=== PATIENT | male | born 1990 | race Caucasian/White ===

== ENCOUNTER 2017-03-02 03:17 | Observation (INO) | payer BC ==
[2017-03-02] MEDS ORDERED: 50% Dextrose in Water 50 ML Syringe ONE ×2 (03:27→04:34)
[2017-03-02] MEDS ORDERED: Sodium Chloride 0.9% 1,000 ML IV ONE (03:32)
[2017-03-02] MEDS ORDERED: 50% Dextrose in Water 50 ML Syringe IVPUSH ONE ×3 (03:33→05:58)
[2017-03-02] MEDS ORDERED: Ondansetron 4 MG/2 ML SDV IVPUSH PRN (03:53)
[2017-03-02] MEDS ORDERED: Temazepam 15 MG Cap PO PRN (03:53)
[2017-03-02] MEDS ORDERED: Acetaminophen 325 MG Tab PO PRN (03:53)
--- NOTE | 2017-03-02 03:53 | EDM.PDOC ---
ED HPI GENERAL MEDICAL PROBLEM - General Chief Complaint: Diabetic Complaint Stated Complaint: DIABETIC- BLOOD SUGAR LEVELS DROPPING Time Seen by Provider: 03/02/17 03:35 Source of Information: Reports: Patient, RN - History of Present Illness INITIAL COMMENTS - FREE TEXT/NARRATIVE: He presented in company friend . He reportedly was confused and his blood sugar on arrival was 44g/dl. He states that he took 8 units of short acting insulin at about midnight as he was eating. - Related Data Allergies Allergy/AdvReac Type Severity Reaction Status Date / Time No Known Allergies Allergy Verified 03/02/17 03:30 Home Meds: Home Meds Insulin Glarg,Human.Rec.Analog [LantUS] 6 unit SUBCUT DAILY 03/02/17 [History] Past Medical History HEENT History: Reports: None Cardiovascular History: Reports: None Respiratory History: Reports: None Gastrointestinal History: Reports: None Genitourinary History: Reports: None Musculoskeletal History: Reports: None Neurological History: Reports: None Psychiatric History: Reports: None Endocrine/Metabolic History: Reports: Diabetes, Type I (diagnosed about four months ago.) Hematologic History: Reports: None Immunologic History: Reports: None Oncologic (Cancer) History: Reports: None Dermatologic History: Reports: None - Past Surgical History Head Surgeries/Procedures: Reports: None HEENT Surgical History: Reports: None Cardiovascular Surgical History: Reports: None GI Surgical History: Reports: None Male Surgical History: Reports: None Neurological Surgical History: Reports: None Social & Family History - Family History Family Medical History: Noncontributory - Tobacco Use Smoking Status *Q: Never Smoker - Caffeine Use Caffeine Use: Reports: Coffee - Recreational Drug Use Recreational Drug Use: No ED ROS GENERAL - Review of Systems Review Of Systems: See Below Constitutional: Denies: Fever, Chills Respiratory: Denies: Shortness of Breath, Cough, Sputum, Hemoptysis Cardiovascular: Denies: Chest Pain ED EXAM GENERAL NO PERIP PULSE - Physical Exam Exam: See Below General Appearance: Alert, No Apparent Distress Throat/Mouth: Normal Lips Head: Atraumatic Neck: Supple Respiratory/Chest: No Respiratory Distress, No Accessory Muscle Use Course - Vital Signs Last Recorded V/S: Last Vital Signs Temp 97.0 F 03/02/17 03:23 Pulse 80 03/02/17 03:23 Resp 18 03/02/17 03:23 BP 129/74 03/02/17 03:23 Pulse Ox 98 03/02/17 03:23 - Orders/Labs/Meds Orders: Active Orders 24 hr Category Date Time Status Patient Status [ADT] Routine ADT 03/02/17 03:53 Active Blood Glucose Check, Bedside [RC] Q1H Care 03/02/17 03:58 Active Oxygen Therapy [RC] PRN Care 03/02/17 03:53 Active Oxygen Therapy [RC] PRN Care 03/02/17 03:58 Active VTE/DVT Education [RC] PER UNIT ROUTINE Care 03/02/17 03:53 Active VTE/DVT Education [RC] PER UNIT ROUTINE Care 03/02/17 03:58 Active Vital Signs [RC] Q4H Care 03/02/17 03:53 Active Vital Signs [RC] Q4H Care 03/02/17 03:58 Active [employer] Diet [DIET] Diet 03/02/17 Breakfast Active COMPREHENSIVE METABOLIC PN,CMP [CHEM] Stat Lab 03/02/17 03:25 Received LIPID PANEL [CHEM] Stat Lab 03/02/17 03:25 Received MAGNESIUM [CHEM] Stat Lab 03/02/17 03:57 Ordered Acetaminophen [Tylenol] Med 03/02/17 03:53 Active 650 mg PO Q4H PRN Dextrose 5%-0.9% NaCl [Dextrose 5%-Normal Saline] 1,000 Med 03/02/17 04:00 Active ml IV ASDIRECTED Insulin Aspart [NovoLOG] Med 03/02/17 04:00 Active See Protocol SUBCUT Q1H Ondansetron [Zofran] Med 03/02/17 03:53 Active 4 mg IVPUSH Q4H PRN Sodium Chloride 0.9% [Normal Saline] 1,000 ml Med 03/02/17 03:32 Active IV .Bolus Temazepam [Restoril] Med 03/02/17 03:53 Active 15 mg PO BEDTIME PRN Resuscitation Status Routine Resus Stat 03/02/17 03:53 Ordered Medication Orders Acetaminophen (Tylenol) 650 mg PO Q4H PRN PRN Reason: Pain (Mild 1-3)/fever Sodium Chloride (Normal Saline) 1,000 mls @ 999 mls/hr IV .Bolus ONE Stop: 03/02/17 04:32 Last Admin: 03/02/17 03:37 Dose: 999 mls/hr Dextrose/Sodium Chloride (Dextrose 5%-Normal Saline) 1,000 mls @ 150 mls/hr IV ASDIRECTED ZEESHAN Last Admin: 03/02/17 04:00 Dose: 150 mls/hr Insulin Aspart (Novolog) 0 unit SUBCUT Q1H ZEESHAN PRN Reason: Protocol Ondansetron HCl (Zofran) 4 mg IVPUSH Q4H PRN PRN Reason: Nausea Temazepam (Restoril) 15 mg PO BEDTIME PRN PRN Reason: Sleep Labs: Laboratory Tests 03/02/17 03/02/17 03/02/17 Range/Units 03:25 03:37 03:54 WBC 7.12 (4.0-11.0) K/uL RBC 4.92 (4.50-5.90) M/uL Hgb 14.9 (13.0-17.0) g/dL Hct 43.3 (38.0-50.0) % MCV 88.0 (80.0-98.0) fL MCH 30.3 (27.0-32.0) pg MCHC 34.4 (31.0-37.0) g/dL RDW Std Deviation 39.4 (28.0-62.0) fl RDW Coeff of [place] 12 (11.0-15.0) % Plt Count 259 (150-400) K/uL MPV 8.70 (7.40-12.00) fL Neut % (Auto) 53.9 (48.0-80.0) % Lymph % (Auto) 39.0 (16.0-40.0) % [place] % (Auto) 5.1 (0.0-15.0) % Eos % (Auto) 1.4 (0.0-7.0) % Baso % (Auto) 0.6 (0.0-1.5) % Neut # (Auto) 3.8 (1.4-5.7) K/uL Lymph # (Auto) 2.8 H (0.6-2.4) K/uL [place] # (Auto) 0.4 (0.0-0.8) K/uL Eos # (Auto) 0.1 (0.0-0.7) K/uL Baso # (Auto) 0.0 (0.0-0.1) K/uL Nucleated RBC % 0.0 /100WBC Nucleated RBCs # 0 K/uL POC Glucose 205 H 60 (60-110) mg/dL Meds: Medications Generic Name Dose Route Start Last Admin Trade Name Freq PRN Reason Stop Dose Admin Acetaminophen 650 mg 03/02/17 03:53 Tylenol PO Q4H PRN Pain (Mild 1-3)/fever Sodium Chloride 1,000 mls @ 999 mls/hr 03/02/17 03:32 03/02/17 03:37 Normal Saline IV 03/02/17 04:32 999 mls/hr .Bolus ONE Administration Dextrose/Sodium Chloride 1,000 mls @ 150 mls/hr 03/02/17 04:00 03/02/17 04:00 Dextrose 5%-Normal Saline IV 150 mls/hr ASDIRECTED ZEESHAN Administration Insulin Aspart 0 unit 03/02/17 04:00 Novolog SUBCUT Q1H [facility] Protocol Ondansetron HCl 4 mg 03/02/17 03:53 Zofran IVPUSH Q4H PRN Nausea Temazepam 15 mg 03/02/17 03:53 Restoril PO BEDTIME PRN Sleep Discontinued Medications Generic Name Dose Route Start Last Admin Trade Name Freq PRN Reason Stop Dose Admin Dextrose/Water Confirm 03/02/17 03:27 03/02/17 04:00 Dextrose 50% In Water Administered 03/02/17 03:28 50 ml Dose Administration 50 ml .ROUTE .STK-MED ONE Dextrose/Water 50 ml 03/02/17 03:33 03/02/17 03:36 Dextrose 50% In Water IVPUSH 03/02/17 03:34 50 ml ONETIME ONE Administration - Re-Assessments/Exams Free Text/Narrative Re-Assessment/Exam: 03/02/17 03:49 He received D50 on arrival. He is feeling much better now with a POC glucose of about 200 g/dl. I recommended admission for observation. Departure - Departure Time of Disposition: 04:01 Disposition: Admitted As Inpatient 66 Condition: Fair Clinical Impression: Hypoglycemia - Discharge Information Referrals: PCP,None [Primary Care Provider] - Forms: ED Department Discharge - My Orders Last 24 Hours: My Active Orders 03/02/17 03:25 COMPREHENSIVE METABOLIC PN,CMP [CHEM] Stat LIPID PANEL [CHEM] Stat 03/02/17 03:32 Sodium Chloride 0.9% [Normal Saline] 1,000 ml IV .Bolus 03/02/17 03:53 Patient Status [ADT] Routine Oxygen Therapy [RC] PRN VTE/DVT Education [RC] PER UNIT ROUTINE Vital Signs [RC] Q4H Acetaminophen [Tylenol] 650 mg PO Q4H PRN Ondansetron [Zofran] 4 mg IVPUSH Q4H PRN Temazepam [Restoril] 15 mg PO BEDTIME PRN Resuscitation Status Routine 03/02/17 03:57 MAGNESIUM [CHEM] Stat 03/02/17 03:58 Blood Glucose Check, Bedside [RC] Q1H Oxygen Therapy [RC] PRN VTE/DVT Education [RC] PER UNIT ROUTINE Vital Signs [RC] Q4H 03/02/17 04:00 Dextrose 5%-0.9% NaCl [Dextrose 5%-Normal Saline] 1,000 ml IV ASDIRECTED Insulin Aspart [NovoLOG] See Protocol SUBCUT Q1H 03/02/17 Breakfast [employer] [employer] Diet [DIET] - Assessment/Plan Last 24 Hours: My Active Orders 03/02/17 03:25 COMPREHENSIVE METABOLIC PN,CMP [CHEM] Stat LIPID PANEL [CHEM] Stat 03/02/17 03:32 Sodium Chloride 0.9% [Normal Saline] 1,000 ml IV .Bolus 03/02/17 03:53 Patient Status [ADT] Routine Oxygen Therapy [RC] PRN VTE/DVT Education [RC] PER UNIT ROUTINE Vital Signs [RC] Q4H Acetaminophen [Tylenol] 650 mg PO Q4H PRN Ondansetron [Zofran] 4 mg IVPUSH Q4H PRN Temazepam [Restoril] 15 mg PO BEDTIME PRN Resuscitation Status Routine 03/02/17 03:57 MAGNESIUM [CHEM] Stat 03/02/17 03:58 Blood Glucose Check, Bedside [RC] Q1H Oxygen Therapy [RC] PRN VTE/DVT Education [RC] PER UNIT ROUTINE Vital Signs [RC] Q4H 03/02/17 04:00 Dextrose 5%-0.9% NaCl [Dextrose 5%-Normal Saline] 1,000 ml IV ASDIRECTED Insulin Aspart [NovoLOG] See Protocol SUBCUT Q1H 03/02/17 Breakfast [employer] [employer] Diet [DIET]
[2017-03-02] MEDS ORDERED: Dextrose 5%-0.9% NaCl 1,000 ML IV SCH ×2 (04:00→07:49)
[2017-03-02 04:09] LABS: CHLORIDE,CL 112 mmol/L (98-110); SODIUM,NA 147 mmol/L (136-146)
[2017-03-02] MEDS: Insulin Aspart 100 Units/ML 3 ML Pen SUBCUT SCH ×2 (08:37→09:55)
[2017-03-02] MEDS: Potassium Chloride 20 MEQ Tab.ER PO ONE ×2 (09:55→09:59)
[2017-03-02 16:36] VITALS: BP 112/61
--- NOTE | 2017-03-02 19:52 | PCM.HP ---
H&P History of Present Illness - General Date of Service: 03/02/17 Admit Problem/Dx: Admission Diagnosis/Problem Admission Diagnosis/Problem Hypoglycemia - History of Present Illness Initial Comments - Free Text/Narative: This is a 26-year-old male who is presenting secondary to hypoglycemic episode due to injection of 8 units of NovoLog. When I initially tried to speak with the patient he was refusing to talk, and turnaround and looked away. However after, reapproaching the patient and discussing with the patient it was determined that the patient had taken 8 units of insulin because he thought he might be high, he also had about 8 cans of beer. Patient was brought in and in the ER the patient was given dextrose fluids, his blood sugars were rechecked and had normalized, he was admitted for observation. It was determined that the patient had not done this intentionally. Onset of Symptoms: Reports: Today - Related Data Allergies/Adverse Reactions: Allergies Allergy/AdvReac Type Severity Reaction Status Date / Time No Known Allergies Allergy Verified 03/02/17 03:30 Home Medications: Home Meds Insulin Glarg,Human.Rec.Analog [Lantus] 6 unit SUBCUT DAILY 03/02/17 [History] Insulin Lispro [Humalog Kwikpen U-100] 03/02/17 [History] Past Medical History HEENT History: Reports: None Cardiovascular History: Reports: None Respiratory History: Reports: None Gastrointestinal History: Reports: None Genitourinary History: Reports: None Musculoskeletal History: Reports: None Neurological History: Reports: None Psychiatric History: Reports: None Endocrine/Metabolic History: Reports: Diabetes, Type I Hematologic History: Reports: None Immunologic History: Reports: None Oncologic (Cancer) History: Reports: None Dermatologic History: Reports: None - Past Surgical History Head Surgeries/Procedures: Reports: None HEENT Surgical History: Reports: None Cardiovascular Surgical History: Reports: None GI Surgical History: Reports: None Male Surgical History: Reports: None Neurological Surgical History: Reports: None Social & Family History - Family History Family Medical History: Noncontributory - Tobacco Use Smoking Status *Q: Never Smoker - Caffeine Use Caffeine Use: Reports: Energy Drinks - Alcohol Use Days Per Week of Alcohol Use: 2 Number of Drinks Per Day: 8 Total Drinks Per Week: 16 - Recreational Drug Use Recreational Drug Use: No H&P Review of Systems - Review of Systems: Review Of Systems: ROS reveals no pertinent complaints other than HPI. Exam - Exam Exam: See Below - Vital Signs Vital Signs: Last Vital Signs Temp 36.6 C 03/02/17 12:00 Pulse 63 03/02/17 06:41 Resp 18 03/02/17 16:00 BP 112/61 03/02/17 16:00 Pulse Ox 97 03/02/17 16:00 Weight: 23.6 kg - Exam General: Alert Neck: Supple Lungs: Clear to Auscultation, Normal Respiratory Effort Cardiovascular: Regular Rate, Regular Rhythm GI/Abdominal Exam: Normal Bowel Sounds, Soft Extremities: Normal Inspection, Normal Range of Motion - Patient Data Lab Results Last 24 hrs: Laboratory Results - last 24 hr 03/02/17 03/02/17 03/02/17 Range/Units 03:54 04:05 04:33 POC Glucose 60 172 H 35 L (60-110) mg/dL 03/02/17 03/02/17 03/02/17 Range/Units 04:45 05:16 05:53 POC Glucose 174 H 84 64 (60-110) mg/dL 03/02/17 03/02/17 03/02/17 Range/Units 06:39 07:42 08:33 POC Glucose 138 H 103 108 (60-110) mg/dL 03/02/17 03/02/17 03/02/17 Range/Units 09:41 11:04 12:15 POC Glucose 123 H 148 H 145 H (60-110) mg/dL 03/02/17 03/02/17 03/02/17 Range/Units 12:56 14:15 15:20 POC Glucose 182 H 149 H 104 (60-110) mg/dL 03/02/17 Range/Units 16:50 POC Glucose 115 H (60-110) mg/dL Result Diagrams: 03/02/17 03:25 03/02/17 03:25 *Q Meaningful Use (ADM) - VTE *Q VTE Criteria *Q: - Stroke *Q Stroke Criteria *Q: - AMI *Q AMI Criteria *Q: Problem List Initiated/Reviewed/Updated: Yes Orders Last 24hrs: Active Orders 24 hr Category Date Time Status Blood Glucose Check, Bedside [RC] Q1H Care 03/02/17 03:58 Active Oxygen Therapy [RC] PRN Care 03/02/17 03:58 Active Ready for Discharge [RC] PER UNIT ROUTINE Care 03/02/17 17:40 Active VTE/DVT Education [RC] PER UNIT ROUTINE Care 03/02/17 03:58 Active Vital Signs [RC] Q4H Care 03/02/17 03:58 Active Consult to Cutter Operator [Consult to Diabetic Nurse Cons 03/02/17 10:34 Active Specialist] [CONS] Routine Assessment/Plan Comment:: 46-year-old type I diabetic admitted secondary to hypoglycemic episode due to injection of insulin Admit the patient for observation -D5W with every hour blood sugar checks to ensure stable blood sugars -CBC and CMP in the morning -Provider the patient is stable, did not intentionally want to harm himself, we shall get diabetic education counseling for the patient and ensure appropriate follow-up -Patient to be discharged after diabetic education Discharge Summary Date of admission: 03/02/2017 Date of discharge: 03/02/2017 Admitting diagnosis: #1. Hypoglycemia secondary to unintentional extra injection of insulin a type I diabetic #2. #3. #4. #5. Discharge diagnoses: #1. Hypoglycemia now resolved #2. Type 1 diabetes #3. #4. #5. Consultations: Diabetic education Procedures: None Hospitalization course: Patient was admitted for observation overnight to ensure that the patient's blood sugars were stable, and that the patient did not require any additional D5W for his low blood sugars. Patient's vital signs were stable, patient's laboratory data was stable patient's CBC and BMP was within normal limits. Patient's blood sugars after being checked consistently were within the normal reference range. After speaking with the patient in the morning it was determined that the patient had done this unintentionally. Diabetic education saw the patient and told the patient that he should take 6 units of Lantus daily, as well as a aggressive insulin sliding scale. The patient is from [facility] and he was told to make a follow-up appointment with his primary care physician and [place] as he was leaving for [place] next week. I have scheduled the patient for an outpatient appointment on 03/07/2017 in case the patient has a further hypoglycemic episodes prior to going to [place]. Disposition on discharge: Home Condition on discharge: Stable, tolerating by mouth, no nausea no vomiting no diarrhea no constipation, no hypoglycemic episodes since admission Discharge medications: Continuation of home medication with Lantus 6 units daily , and a aggressive insulin sliding scale Follow-up instructions: Patient to follow-up with primary care physician and [place], patient does have an appointment with me on 03/07/2017 in case he is unable to see his primary care physician in a reasonable amount of time with ongoing for [place]
== END 2017-03-02 18:20 | disposition home or self-care (01) ==
LOC: MW.ED 03:17 → MW.ICU 03:53
PROVIDERS: ADMIT Family Medicine; ATTEND Family Medicine
DX: E10.649 Type 1 diabetes mellitus with hypoglycemia without coma (principal); Z79.4 Long term (current) use of insulin
CPT/HCPCS: 36415; 80053; 80061; 82962; 83735; 85025; 96361; 96374; 96376; 99285; J2405; J7040; J7042; J7060; 96375; 99282; A9270-GY; G0378